=== PATIENT | female | born 1975 | race Caucasian/White ===

== ENCOUNTER 2021-06-23 07:37 | Emergency (ER) | payer SELFPAY ==
[~2021-06-23] VITALS: Ht 165.1 cm; Wt 160.1 kg
--- NOTE | 2021-06-23 08:31 | RAD ---
XR CHEST 1V History: Reason: shortness of breath / Spl. Instructions: / History: Comparison: None. Findings: Mild ill-defined bibasilar opacities. No pleural effusion. No pneumothorax. Normal heart size. Impression: 1. Mild ill-defined bibasilar opacities, may represent atelectasis or developing infiltrates. If per sistent clinical concern, recommend follow-up. Electronically signed by: Golden Hussein DO (06/23/2021 8:29 AM) [id number]
--- NOTE | 2021-06-23 08:40 | PHYS DOC ---
Past Medical History Past Medical History: COPD, Diabetes-Type II, High Cholesterol Past Surgical History: Appendectomy, Cholecystectomy, Tonsillectomy Smoking Status: Current Every Day Smoker Alcohol Use: None General Adult EDM: Chief Complaint: SHORTNESS OF BREATH HPI: HPI: Patient is a 45 year old female with history of COPD, DM, tobacco abuse who presents with 4 days of progressive shortness of breath. She is recently moved from [place] and states that she does not have a PCP in the area. She has been out of her albuterol inhaler. Denies being on an inhaled steroid previously. Does state that she was hospitalized for presumed bacterial pneumonia in March back in [facility]. She has had increasing productive cough. Brown sputum most frequent in the morning. She has had increasing shortness of breath that is both exertional and has a component of orthopnea. She complains of lower extremity swelling, right greater than left. Denies having previous echocardiogram. Does state that she has been worked up for pulmonary embolism as recently as March with a negative CT scan after high D-dimer. At that time she did not have unilateral leg swelling. She was hospitalized for a few days. Denies any recent surgeries. Denies hemoptysis. No cancer history. No estrogen-containing medications. No history of DVT/PE. She is not anticoagulated. Denies chest pain, but does complain of chest tightness. Reports chills. No measured temperatures. Review of Systems: Review of Systems: Constitutional: Reports chills. Eyes: Denies change in visual acuity. [] HENT: Denies nasal congestion or sore throat. [] Respiratory: Reports cough and shortness of breath. Reports chest tightness. Cardiovascular: Denies chest pain. Reports lower extremity edema R>L. GI: Denies abdominal pain, nausea, vomiting, bloody stools or diarrhea. [] : Denies dysuria. [] Musculoskeletal: Denies back pain or joint pain. [] Integument: Denies rash. [] Neurologic: Denies headache, focal weakness or sensory changes. [] Psychiatric: Denies depression or anxiety. [] Heart Score: C/O Chest Pain: No Allergies: Allergies: Allergies Coded Allergies Type Severity Reaction Last Updated Verified No Known Drug Allergies 06/23/21 No Physical Exam: PE: Constitutional: Obese, increased work of breathing. 4-5 word dyspnea is improving with rest. HENT: Normocephalic, atraumatic, Eyes: PERRLA, EOMI, conjunctiva normal, no discharge. [] Neck: Normal range of motion, no tenderness, supple, no stridor. [] Cardiovascular:Heart rate regular rhythm, no murmur [] Lungs & Thorax: Frequent wet sounding and productive cough. Notably no wheezes, or rales. Increased work of breathing with tachypnea in the mid 20s to 30 Abdomen: Bowel sounds normal, soft, no tenderness, no masses, no pulsatile masses. [] Skin: Warm, dry, no erythema, no rash. [] Extremities: Right lower extremity appears slightly larger than the left. Pitting edema obviously evident on the right, mild pitting edema on the left. 2+ DP pulses bilaterally. Neurologic: Alert and oriented X 3, normal motor function, normal sensory function, no focal deficits noted. [] Psychologic: Affect normal, judgement normal, mood normal. [] Current Patient Data: Vital Signs: Vital Signs Date Time Temp Pulse Resp B/P (MAP) Pulse Ox O2 Delivery O2 Flow Rate FiO2 06/23/21 08:09 98.5 99 22 166/85 (112) 97 Room Air 98.5 EKG: EKG: [] Radiology/Procedures: Radiology/Procedures: [] Impression: [facility] [address] [place], [place] [id number] IMAGING REPORT Signed PATIENT: JOLLY GOMEZ ACCOUNT: [id number] : 1975 LOCATION: ER AGE: 45 SEX: F EXAM STATUS: REG ER ORD. PHYSICIAN: TATY MATIAS MD REASON: shortness of breath PROCEDURE: CHEST AP ONLY XR CHEST 1V History: Reason: shortness of breath / Spl. Instructions: / History: Comparison: None. Findings: Mild ill-defined bibasilar opacities. No pleural effusion. No pneumothorax. Normal heart size. Impression: 1. Mild ill-defined bibasilar opacities, may represent atelectasis or developing infiltrates. If persistent clinical concern, recommend follow-up. Electronically signed by: Golden Hussein DO (06/23/2021 8:29 AM) [id number] DICTATED and SIGNED BY: GOLDEN HUSSEIN DO DATE: 06/23/[id number] 0 [facility] [address] [place] [address] IMAGING REPORT Signed PATIENT: JOLLY GOMEZ ACCOUNT: [id number] : 1975 LOCATION: ER AGE: 45 SEX: F EXAM STATUS: REG ER ORD. PHYSICIAN: TATY MATIAS MD REASON: r/o dvt, swelling; SOB; Cough x 5 days PROCEDURE: VENOUS LOWER EXTREMITY RIGHT STUDY: US DPLX VENOUS EXTREMITY LOWER RT INDICATION: Reason: r/o dvt, swelling; SOB; Cough x 5 days TECHNIQUE: Color-flow and pulsed wave duplex ultrasound with compression of venous structures of the right lower extremity. COMPARISON: None Available. FINDINGS: Duplex ultrasound with compression of the deep venous structures of the right lower extremity from the common femoral vein through the popliteal vein is negative for DVT. The posterior tibial and peroneal veins are segmentally visualized and patent where seen. Normal venous waveforms and augmentation are noted throughout. IMPRESSION: No deep venous thrombosis of the right lower extremity. Electronically signed by: Dani Maciel MD (06/23/2021 8:59 AM) [id number] DICTATED and SIGNED BY: DANI MACIEL MD DATE: 06/23/21 [id number] Course & Med Decision Making: Course & Med Decision Making Pertinent Labs and Imaging studies reviewed. (See chart for details) Patient 45-year-old female with history of COPD, recent hospitalization for pneumonia (March) who presents with progressive orthopnea, exertional dyspnea, productive cough, and lower extremity edema R >L. On arrival is afebrile, HR 99, mild HTN, and increased work of breathing. Notably no wheezing to suggest COPD exacerbation. With swelling considered new onset heart failure, DVT/PE. With productive cough and reported chills considered pneumonia, covid, influenza. Exertional chest tightness present so considered ACS as well, single troponin should be sufficient to r/o given timing of several days. 0840 Dimer negative. DVT US negative. No further work up for VTE. EKG non-ischemic and trop negative. No evidence of pulmonary edema on CXR and BNP is normal making new onset heart failure less likely. Rapid flu/covid neg. CXR does show evidence of early pneumonia and given her hx will treat with doxycycline and augmentin. Refill albuterol and steroid burst. Given contact info to establish with PCP in area. Return precautions discussed. Shana Disclaimer: Shana Disclaimer: This electronic medical record was generated, in whole or in part, using a voice recognition dictation system. Departure Departure Impression: Primary Impression: Pneumonia Disposition: HOME / SELF CARE / HOMELESS Condition: STABLE Referrals: NO PCP (PCP) Patient Instructions: Pneumonia, Adult Additional Instructions: Since you do not have a PCP, please call the number for the [facility] at [phone]. You have evidence of pneumonia on your chest x-ray you will need to take 2 antibiotics called Augmentin and doxycycline. Please take full as prescribed. Please take a 5-day course of steroids and use albuterol every 4 hours as needed. Please purchase a spacer to use with your albuterol inhaler. If you develop worsening shortness of breath, high fever/shaking chills, new/concerning symptoms please return to the emergency department for reevaluation. Scripts Prednisone (PREDNISONE) 50 Mg Tablet 1 TAB PO DAILY, #5 TAB 0 Refills Prov: TATY MATIAS MD 06/23/21 Amoxicillin/Potassium Clav (AUGMENTIN 875-125 TABLET) 1 Each Tablet 1 TAB PO BID for 7 Days, #14 TAB 0 Refills Prov: TATY MATIAS MD 06/23/21 Doxycycline Hyclate (DOXYCYCLINE HYCLATE) 100 Mg Capsule 1 CAP PO BID for 7 Days, #14 CAP 0 Refills Prov: TATY MATIAS MD 06/23/21 Albuterol Sulfate (Proair Hfa) 8.5 Gm Hfa.aer.ad 2 PUFF IH PRN Q4-6HRS PRN for wheezing for 21 Days, #1 INHALER 0 Refills Prov: TATY MATIAS MD 06/23/21 TATY MATIAS MD Jun 23, 2021 08:40
[2021-06-23 08:45] LABS: BASO % 0 % (0-3); EOS # 0.3 x10^3/uL (0.0-0.7); EOS % 3 % (0-3); HEMATOCRIT 37.3 % (36.0-47.0); HEMOGLOBIN 11.9 g/dL (12.0-15.5); LYMPH # 2.6 x10^3/uL (1.0-4.8); LYMPH % 23 % (24-48); MEAN CORPUSCULAR HEMOGLOBIN 22 pg (25-35); MEAN CORPUSCULAR HGB CONC 32 g/dL (31-37); MEAN CORPUSCULAR VOLUME 70 fL (79-100); MONO # 0.8 x10^3/uL (0.0-1.1); MONO % 7 % (0-9); NEUT # 7.3 x10^3/uL (1.8-7.7); NEUT % 67 % (31-73); PLATELET COUNT 289 x10^3/uL (140-400); RED BLOOD COUNT 5.33 x10^6/uL (3.50-5.40); RED CELL DISTRIBUTION WIDTH 18.9 % (11.5-14.5)
[2021-06-23 08:50] LABS: CALCIUM 8.6 mg/dL (8.5-10.1); CREATININE 0.6 mg/dL (0.6-1.0); GFR 109.1; POTASSIUM 4.1 mmol/L (3.5-5.1)
[2021-06-23 08:56] LABS: ALBUMIN 3.1 g/dL (3.4-5.0); ALBUMIN/GLOBULIN RATIO 0.8 (1.0-1.7); TOTAL BILIRUBIN 0.4 mg/dL (0.2-1.0)
[2021-06-23 08:58] LABS: INFLUENZA A PATIENT NEGATIVE (NEGATIVE); INFLUENZA B PATIENT NEGATIVE (NEGATIVE)
--- NOTE | 2021-06-23 09:01 | RAD ---
STUDY: US DPLX VENOUS EXTREMITY LOWER RT INDICATION: Reason: r/o dvt, swelling; SOB; Cough x 5 days TECHNIQUE: Color-flow and pulsed wave duplex ultrasound with compression of venous structures of the right lower extremity. COMPARISON: None Available. FINDINGS: Duplex ultrasound with compression of the deep venous structures of the right lower extremity from th e common femoral vein through the popliteal vein is negative for DVT. The posterior tibial and peroneal veins are segmentally visualized and patent where seen. Normal veno us waveforms and augmentation are noted throughout. IMPRESSION: No deep venous thrombosis of the right lower extremity. Electronically signed by: Dani Grayson MD (06/23/2021 8:59 AM) [id number]
[2021-06-23 09:02] VITALS: BP 125/58
[2021-06-23] MEDS ORDERED: DOXY100C3 PO (09:55)
[2021-06-23] MEDS ORDERED: AMOX1TAB61 PO (09:55)
[2021-06-23] MEDS ORDERED: ALBU2.5V8 IH (09:55)
[2021-06-23] MEDS ORDERED: PRED50TA PO (09:55)
[2021-06-23 10:11] LABS: HYPOCHROMIA PRESENT; MICROCYTOSIS PRESENT; PLT ESTIMATE ADEQUATE (ADEQUATE)
--- NOTE | 2021-06-24 03:38 | EKG ---
[facility] [address] [place] [address] Test Date: 2021-06-23 Test Time: 09:31:37 Pat Name: JOLLY GOMEZ Department: Room: Gender: F Rn Hemodialysis Charge: : 1975 Requested By: TATY MATIAS Order Number: [id number] Reading MD: Measurements Intervals [place] Rate: 81 P: 37 TX: 162 QRS: 84 QRSD: 82 T: 31 QT: 372 QTc: 433 Interpretive Statements SINUS RHYTHM NORMAL ECG RI6.01 No previous ECG available for comparison
--- NOTE | 2021-06-24 09:21 | NUR ---
Attempted to reach patient with test results, voicemail was left to return phone call. Addendum: 06/24/21 at 0935 by Marylin Gutierrez RN Patient returned call, was informed of negative test results.
== END 2021-06-23 10:11 | disposition home or self-care (01) ==
LOC: ER 07:37
DX: J18.9 Pneumonia, unspecified organism (principal); Z20.822 Contact with and (suspected) exposure to COVID-19; J44.9 Chronic obstructive pulmonary disease, unspecified; E11.9 Type 2 diabetes mellitus without complications; E78.00 Pure hypercholesterolemia, unspecified; Z72.0 Tobacco use
CPT/HCPCS: 36415; 71045; 80053; 83880; 84484; 85025; 85379; 87426; 87804; 93005; 93971; 99285; U0003; U0005

== ENCOUNTER 2021-10-03 07:36 | Inpatient (IN) | payer SELFPAY ==
[~2021-10-03] VITALS: Ht 165.1 cm; Wt 154.4 kg
[~2021-10-03 07:36] MED LIST: ALBU2.5V8 IH; AMOX1TAB61 PO; DOXY100C3 PO; PRED50TA PO
[2021-10-03] MEDS ORDERED: IV NORMAL SALINE 1000ML BAG 1,000 ML IV SCH (08:15)
[2021-10-03] MEDS ORDERED: diphenhydrAMINE 50 MG/ML VIAL IVP ONE (08:30)
[2021-10-03] MEDS ORDERED: KETOROLAC 15 MG/ML VIAL. IVP ONE (08:30)
[2021-10-03 08:43] LABS: BASO % 0 % (0-3); EOS # 0.1 x10^3/uL (0.0-0.7); EOS % 2 % (0-3); HEMATOCRIT 40.8 % (36.0-47.0); HEMOGLOBIN 12.5 g/dL (12.0-15.5); LYMPH # 1.4 x10^3/uL (1.0-4.8); LYMPH % 20 % (24-48); MEAN CORPUSCULAR HEMOGLOBIN 20 pg (25-35); MEAN CORPUSCULAR HGB CONC 31 g/dL (31-37); MEAN CORPUSCULAR VOLUME 64 fL (79-100); MONO # 0.9 x10^3/uL (0.0-1.1); MONO % 13 % (0-9); NEUT # 4.4 x10^3/uL (1.8-7.7); NEUT % 65 % (31-73); PLATELET COUNT 336 x10^3/uL (140-400); RED BLOOD COUNT 6.37 x10^6/uL (3.50-5.40); RED CELL DISTRIBUTION WIDTH 17.9 % (11.5-14.5); WHITE BLOOD COUNT 6.8 x10^3/uL (4.0-11.0)
[2021-10-03 08:44] LABS: RBC,URINE 0 /HPF (0-2)
[2021-10-03 08:45] LABS: AMORPHOUS SEDIMENT,UR PRESENT /HPF; BACTERIA,URINE FEW /HPF (0-FEW); HYALINE CASTS, URINE FEW /HPF
[2021-10-03] MEDS ORDERED: CONTRAST GIVEN. MC PRN (08:45)
[2021-10-03] MEDS ORDERED: IOHEXOL 300 MG/ML 100ML VIAL. IV ONE (08:45)
[2021-10-03 08:50] LABS: CALCIUM 8.5 mg/dL (8.5-10.1); CREATININE 0.7 mg/dL (0.6-1.0); GFR 91.3; POTASSIUM 3.6 mmol/L (3.5-5.1)
[2021-10-03 08:55] LABS: ALBUMIN 3.8 g/dL (3.4-5.0); TOTAL BILIRUBIN 0.6 mg/dL (0.2-1.0); TOTAL PROTEIN 7.5 g/dL (6.4-8.2)
--- NOTE | 2021-10-03 09:05 | PHYS DOC ---
Past Medical History Past Medical History: COPD, Diabetes-Type II, High Cholesterol Additional Past Medical Histor: morbid obesity Past Surgical History: Cholecystectomy, Tonsillectomy, Other Additional Past Surgical Histo: lithotripsy, trigger thumb Smoking Status: Current Every Day Smoker Additional Information: 1 ppd Alcohol Use: Rarely General Adult EDM: Chief Complaint: DIARRHEA HPI: HPI: Patient is a 45 year old female presents with abdominal cramping sharp right upper quadrant pain and diarrhea for the last 4 days. Patient also states that she has broke out in hives on her volar aspect of her left hand as well as her left ear. Patient states that she has only been able to eat peanut butter crackers as she lacks an appetite and reports extreme nausea. Patient denies any vomiting. States that she had her gallbladder removed in the past. Denies fevers or chills no sick contacts no new food exposures. Patient states that she has been treating herself with Imodium but the symptoms have not improved and came to the ER today to be evaluated Review of Systems: Review of Systems: Constitutional: Denies fever or chills. Eyes: Denies change in visual acuity. HENT: Denies nasal congestion or sore throat. Respiratory: Denies cough or shortness of breath. Cardiovascular: Denies chest pain or edema. GI: Patient reports abdominal cramping worse in the right upper quadrant. Diarrhea nausea no vomiting : Denies dysuria. Musculoskeletal: Denies back pain or joint pain. Integument: Denies rash. Neurologic: Denies headache, focal weakness or sensory changes. Endocrine: Denies polyuria or polydipsia. Lymphatic: Denies swollen glands. Psychiatric: Denies depression or anxiety. Heart Score: C/O Chest Pain: No Risk Factors: Risk Factors: DM, Current or recent (<one month) smoker, HTN, HLP, family history of CAD, obesity. Risk Scores: Score 0 - 3: 2.5% MACE over next 6 weeks - Discharge Home Score 4 - 6: 20.3% MACE over next 6 weeks - Admit for Clinical Observation Score 7 - 10: 72.7% MACE over next 6 weeks - Early Invasive Strategies Current Medications: Current Medications Medications (Trade) Dose Ordered Sig/Cande Start Time Stop Time Status Last Admin Dose Admin Diphenhydramine HCl (Benadryl) 25 mg 1X ONCE 10/03/21 08:30 10/03/21 08:31 DC 10/03/21 08:43 25 MG Info (CONTRAST GIVEN -- Rx MONITORING) 1 each PRN DAILY PRN 10/03/21 08:45 10/05/21 08:44 Iohexol (Omnipaque 300 Mg/ml) 75 ml 1X ONCE 10/03/21 08:45 10/03/21 08:46 DC Ketorolac Tromethamine (Toradol 15mg Vial) 15 mg 1X ONCE 10/03/21 08:30 10/03/21 08:31 DC 10/03/21 08:41 15 MG Sodium Chloride 1,000 ml @ 1,000 mls/hr Q1H 10/03/21 08:15 10/03/21 09:14 10/03/21 08:30 1,000 MLS/HR Allergies: Allergies: Allergies Coded Allergies Type Severity Reaction Last Updated Verified No Known Drug Allergies 10/03/21 No Physical Exam: PE: Constitutional: Well developed, well nourished, no acute distress, non-toxic appearance. [] HENT: Normocephalic, atraumatic, bilateral external ears normal, oropharynx moist, no oral exudates, nose normal. [] Eyes: PERRLA, EOMI, conjunctiva normal, no discharge. [] Neck: Normal range of motion, no tenderness, supple, no stridor. [] Cardiovascular:Heart rate regular rhythm, no murmur [] Lungs & Thorax: Bilateral breath sounds clear to auscultation [] Abdomen: Bowel sounds normal, soft, no tenderness, no masses, no pulsatile masses. [] Skin: Warm, dry, no erythema, no rash. [] Back: No tenderness, no CVA tenderness. [] Extremities: No tenderness, no cyanosis, no clubbing, ROM intact, no edema. [] Neurologic: Alert and oriented X 3, normal motor function, normal sensory function, no focal deficits noted. [] Psychologic: Affect normal, judgement normal, mood normal. [] Current Patient Data: Labs: Laboratory Tests Test 10/03/21 07:57 10/03/21 07:59 10/03/21 08:25 Urine Collection Type Unknown Urine Color (Auto) Yellow Urine Turbidity Hazy Urine pH (Auto) 6.0 (<5.0-8.0) Urine Specific [place] 1.030 (1.000-1.030) Urine Protein (Auto) 70 mg/dL (Negative) Urine Glucose (Auto)(UA) 100 mg/dL (Negative) Urine Ketones (Auto) Negative mg/dL (Negative) Urine Blood (Auto) Moderate (Negative) Urine Nitrite (Auto) Negative (Negative) Urine Bilirubin (Auto) Negative (Negative) Urine Urobilinogen (Auto) Normal mg/dL (Normal) Urine Leukocyte Esterase (Auto) Negative (Negative) Urine RBC 0 /HPF (0-2) Urine WBC 5-10 /HPF (0-4) Urine Squamous Epithelial Cells Mod /LPF Urine Amorphous Sediment Present /HPF Urine Bacteria Few /HPF (0-FEW) Urine Hyaline Casts Few /HPF Urine Mucus Mod /LPF POC Urine HCG, Qualitative Hcg negative (Negative) White Blood Count 6.8 x10^3/uL (4.0-11.0) Red Blood Count 6.37 x10^6/uL (3.50-5.40) H Hemoglobin 12.5 g/dL (12.0-15.5) Hematocrit 40.8 % (36.0-47.0) Mean Corpuscular Volume 64 fL (79-100) L Mean Corpuscular Hemoglobin 20 pg (25-35) L Mean Corpuscular Hemoglobin Concent 31 g/dL (31-37) Red Cell Distribution Width 17.9 % (11.5-14.5) H Platelet Count 336 x10^3/uL (140-400) Neutrophils (%) (Auto) 65 % (31-73) Lymphocytes (%) (Auto) 20 % (24-48) L Monocytes (%) (Auto) 13 % (0-9) H Eosinophils (%) (Auto) 2 % (0-3) Basophils (%) (Auto) 0 % (0-3) Neutrophils # (Auto) 4.4 x10^3/uL (1.8-7.7) Lymphocytes # (Auto) 1.4 x10^3/uL (1.0-4.8) Monocytes # (Auto) 0.9 x10^3/uL (0.0-1.1) Eosinophils # (Auto) 0.1 x10^3/uL (0.0-0.7) Basophils # (Auto) 0.0 x10^3/uL (0.0-0.2) Platelet Estimate Pending Sodium Level 135 mmol/L (136-145) L Potassium Level 3.6 mmol/L (3.5-5.1) Chloride Level 100 mmol/L (98-107) Carbon Dioxide Level 25 mmol/L (21-32) Anion Gap 10 (6-14) Blood Urea Nitrogen 12 mg/dL (7-20) Creatinine 0.7 mg/dL (0.6-1.0) Estimated GFR (Cockcroft-Gault) 91.3 BUN/Creatinine Ratio 17 (6-20) Glucose Level 222 mg/dL (70-99) H Calcium Level 8.5 mg/dL (8.5-10.1) Total Bilirubin 0.6 mg/dL (0.2-1.0) Aspartate Amino Transferase (AST) 34 U/L (15-37) Alanine Aminotransferase (ALT) 54 U/L (14-59) Alkaline Phosphatase 81 U/L (46-116) Total Protein 7.5 g/dL (6.4-8.2) Albumin 3.8 g/dL (3.4-5.0) Albumin/Globulin Ratio 1.0 (1.0-1.7) Lipase 105 U/L (73-393) Laboratory Tests 10/03/21 08:25 Laboratory Tests 10/03/21 08:25 Vital Signs: Vital Signs Date Time Temp Pulse Resp B/P (MAP) Pulse Ox O2 Delivery O2 Flow Rate FiO2 10/03/21 08:44 88 20 169/83 (111) 96 Room Air 10/03/21 07:50 98.7 98.7 EKG: EKG: [] Radiology/Procedures: Radiology/Procedures: Procedure: Contiguous axial images of the abdomen and pelvis were performed after the administration of 75 cc of Omni 300 IV contrast. Oral contrast: No. Findings: Cholecystectomy. The appendix is normal. Liver: Unremarkable Spleen: Unremarkable Pancreas: Unremarkable Adrenal Glands: Unremarkable Kidneys: There is a 4.1 cm hypoattenuating mass medially in the left kidney There is no mass or lymphadenopathy. There is no free air. There is no free fluid. The urinary bladder is collapsed and not well evaluated. Impression: Left kidney lesion appears to be a solid mass. Consider follow-up ultrasound or MRI with and without contrast. Course & Med Decision Making: Course & Med Decision Making Pertinent Labs and Imaging studies reviewed. (See chart for details) Patient is a 4.1 cm perinephric mass. Patient has nondescript abdominal pain diarrhea and hives. Discussed concerns with the hospitalist will bring in for paraneoplastic syndrome Shana Disclaimer: Shana Disclaimer: This electronic medical record was generated, in whole or in part, using a voice recognition dictation system. Departure Departure Referrals: NO PCP (PCP) HOMA IBRAHIM DO Oct 03, 2021 09:05
--- NOTE | 2021-10-03 09:38 | RAD ---
CT OF THE ABDOMEN AND PELVIS WITH IV CONTRAST. History: Abdominal pain Comparison:None. Procedure: Contiguous axial images of the abdomen and pelvis were performed after the administration of 75 cc o f Omni 300 IV contrast. Oral contrast: No. Findings: Cholecystectomy. The appendix is normal. Liver: Unremarkable Spleen: Unremarkable Pancreas: Unremarkable Adrenal Glands: Unremarkable Kidneys: There is a 4.1 cm hypoattenuating mass medially in the left kidney There is no mass or lymphadenopathy. There is no free air. There is no free fluid. The urinary bladder is collapsed and not well evaluated. Impression: Left kidney lesion appears to be a solid mass. Consider follow-up ultrasound or MRI with and without contrast. End Impression PQRS Compliance Statement: One or more of the following individualized dose reduction techniques were utilized for this examinat ion: 1. Automated exposure control 2. Adjustment of the mA and/or kV according to patient size 3. Use of iterative reconstruction technique Electronically signed by: Zion Logan III, MD (10/03/2021 9:36 AM) [facility]
[2021-10-03 11:45] LABS: ANISOCYTOSIS SLIGHT; MICROCYTOSIS MARKED; PLT ESTIMATE ADEQUATE (ADEQUATE)
[2021-10-03 11:46] LABS: HYPOCHROMIA MARKED
[2021-10-03 12:30] VITALS: BP 130/80
[2021-10-03] MEDS ORDERED: METF100010 PO (12:57)
[2021-10-03] MEDS ORDERED: METF10007 PO (12:57)
[2021-10-03] MEDS ORDERED: CALCIUM CARBONATE 500 MG TAB.CHEW PO PRN (13:00)
[2021-10-03] MEDS ORDERED: ONDANSETRON PF 4 MG/2 ML VIAL. IVP PRN (13:00)
[2021-10-03] MEDS ORDERED: ELECTROLYTE (NON-ICU) PROTOCOL. MC PRN (13:00)
[2021-10-03] MEDS ORDERED: MORPHINE SULFATE 2 MG/ML INJ. IV PRN ×2 (13:00)
[2021-10-03] MEDS ORDERED: ZOLPIDEM 5 MG TABLET. PO PRN (13:00)
[2021-10-03 15:00] VITALS: BP 144/76
[2021-10-03] MEDS: DIPHENHYDRAMINE/ZINC ACETATE 2%/0.1% TOPICAL CREAM 28GM TUBE. TP PRN (15:14)
[2021-10-03] MEDS: HEPARIN for SUB-Q USE 5,000 UNIT/ML VIAL. SQ SCH ×2 (15:25→22:27)
--- NOTE | 2021-10-03 15:54 | RAD ---
EXAM: RENAL ULTRASOUND CLINICAL HISTORY: Mass evaluation. COMPARISON: Same day CT abdomen/pelvis TECHNIQUE: Ultrasound examination of the bilateral kidneys and urinary bladder was performed. FINDINGS: The right kidney measures 12.6 x 5.4 x 5.6 cm. The left kidney was not able to be evaluated and very poor visualization of the urinary bladder on account of patient body habitus. No appreciable cyst or mass of the right kidney. No hydronephrosis on the right. Prevoid bladder volu me of 110 cc measuring 5.3 x 6.6 x 5.9 cm. IMPRESSION: 1. Significantly limited study on account of patient body habitus. The left kidney and the associated potential mass described on the same day CT were not able to be evaluated. Eventual CT or MRI renal mass protocol would be needed to further evaluate. 2. Morphologically unremarkable right kidney without hydronephrosis. Limited assessment of the urinar y bladder without obvious localized wall thickening. Prevoid bladder volume of approximately 110 cc. Electronically signed by: WARNER ROMERO MD (10/03/2021 3:52 PM) [id number]
[2021-10-03] MEDS ORDERED: OMEP20CA16 PO (16:22)
--- NOTE | 2021-10-03 18:31 | PDOC ---
PROGRESS NOTE DATE OF SERVICE: DATE: 10/03/21 TIME: 18:25 CHIEF COMPLAINT: abd pain/diarrhea/nausea SUBJECTIVE: ROS: ROS: RESPIRATORY: Shortness of breath denies. Cough denies. UROLOGY: Denies blood in urine. Denies difficulty urinating HPI: 45 year old female presented to the ER today with abd pain, nausea, and diarrhea x2 days. Significant finding on CT for 4.1cm right renal mass. Patient states she had a scan done "years ago" that showed this mass and was 3cm. States she wasn't told at that time about it. Unable to tell me when or where this was done. Denies any urinary symptoms. Problems: Problems Medical Problems: (1) Paraneoplastic neurologic disorder Status: Acute OBJECTIVE: Vital Signs: Vital Signs Date Time Temp Pulse Resp B/P (MAP) Pulse Ox O2 Delivery O2 Flow Rate FiO2 10/03/21 15:00 98.1 86 16 144/76 (98) 93 Room Air 98.1 10/03/21 13:00 Room Air 10/03/21 12:39 80 20 155/88 (110) 96 Room Air 10/03/21 12:30 97.8 85 16 130/80 (97) 96 Room Air 97.8 10/03/21 09:56 75 20 126/57 (80) 99 Room Air 10/03/21 08:44 88 20 169/83 (111) 96 Room Air 10/03/21 08:31 90 20 118/63 (81) 97 Room Air 10/03/21 07:50 98.7 93 24 177/75 (109) 99 Room Air 98.7 PHYSICAL EXAM: Physical Exam: General: Pleasant, no acute distress, well groomed Eyes: conjunctiva anicteric, eyes full range of motion ENT: moist oral mucosa, normal dentition Neck: Trachea midline, no masses Respiratory: unlabored breathing, not using accessory muscles, no crackles or wheezes Abdomen: abd pain, nondistended, no hepatosplenomegaly, no masses Skin: no rashes or skin lesions on visualized skin Psych: normal mood, affect. Alert and oriented x 3. LABS: Laboratory Tests Test 10/03/21 07:57 10/03/21 07:59 10/03/21 08:25 10/03/21 17:08 Urine Collection Type Unknown Urine Color (Auto) Yellow Urine Turbidity Hazy Urine pH (Auto) 6.0 (<5.0-8.0) Urine Specific [place] 1.030 (1.000-1.030) Urine Protein (Auto) 70 mg/dL (Negative) Urine Glucose (Auto)(UA) 100 mg/dL (Negative) Urine Ketones (Auto) Negative mg/dL (Negative) Urine Blood (Auto) Moderate (Negative) Urine Nitrite (Auto) Negative (Negative) Urine Bilirubin (Auto) Negative (Negative) Urine Urobilinogen (Auto) Normal mg/dL (Normal) Urine Leukocyte Esterase (Auto) Negative (Negative) Urine RBC 0 /HPF (0-2) Urine WBC 5-10 /HPF (0-4) Urine Squamous Epithelial Cells Mod /LPF Urine Amorphous Sediment Present /HPF Urine Bacteria Few /HPF (0-FEW) Urine Hyaline Casts Few /HPF Urine Mucus Mod /LPF Bedside Urine HCG, Qualitative Hcg negative (Negative) White Blood Count 6.8 x10^3/uL (4.0-11.0) Red Blood Count 6.37 x10^6/uL (3.50-5.40) Hemoglobin 12.5 g/dL (12.0-15.5) Hematocrit 40.8 % (36.0-47.0) Mean Corpuscular Volume 64 fL (79-100) Mean Corpuscular Hemoglobin 20 pg (25-35) Mean Corpuscular Hemoglobin Concent 31 g/dL (31-37) Red Cell Distribution Width 17.9 % (11.5-14.5) Platelet Count 336 x10^3/uL (140-400) Neutrophils (%) (Auto) 65 % (31-73) Lymphocytes (%) (Auto) 20 % (24-48) Monocytes (%) (Auto) 13 % (0-9) Eosinophils (%) (Auto) 2 % (0-3) Basophils (%) (Auto) 0 % (0-3) Neutrophils # (Auto) 4.4 x10^3/uL (1.8-7.7) Lymphocytes # (Auto) 1.4 x10^3/uL (1.0-4.8) Monocytes # (Auto) 0.9 x10^3/uL (0.0-1.1) Eosinophils # (Auto) 0.1 x10^3/uL (0.0-0.7) Basophils # (Auto) 0.0 x10^3/uL (0.0-0.2) Platelet Estimate Adequate (ADEQUATE) Large Platelets Few Hypochromasia Marked Anisocytosis Slight Microcytosis Marked Sodium Level 135 mmol/L (136-145) Potassium Level 3.6 mmol/L (3.5-5.1) Chloride Level 100 mmol/L (98-107) Carbon Dioxide Level 25 mmol/L (21-32) Anion Gap 10 (6-14) Blood Urea Nitrogen 12 mg/dL (7-20) Creatinine 0.7 mg/dL (0.6-1.0) Estimated GFR (Cockcroft-Gault) 91.3 BUN/Creatinine Ratio 17 (6-20) Glucose Level 222 mg/dL (70-99) Calcium Level 8.5 mg/dL (8.5-10.1) Total Bilirubin 0.6 mg/dL (0.2-1.0) Aspartate Amino Transf (AST/SGOT) 34 U/L (15-37) Alanine Aminotransferase (ALT/SGPT) 54 U/L (14-59) Alkaline Phosphatase 81 U/L (46-116) Total Protein 7.5 g/dL (6.4-8.2) Albumin 3.8 g/dL (3.4-5.0) Albumin/Globulin Ratio 1.0 (1.0-1.7) Lipase 105 U/L (73-393) Glucose (Fingerstick) 213 mg/dL (70-99) MEDICATIONS: Current Medications Medications (Trade) Dose Ordered Sig/Cande Start Time Stop Time Status Last Admin Dose Admin Calcium Carbonate/ Glycine (Tums) 500 mg PRN Q3HRS PRN 10/03/21 13:00 Diphenhydramine HCl (Benadryl) 25 mg PRN Q6HRS PRN 10/03/21 14:15 Heparin Sodium (Porcine) (Heparin Sodium) 5,000 unit Q8HRS 10/03/21 14:00 10/03/21 15:25 5,000 UNIT Info (CONTRAST GIVEN -- Rx MONITORING) 1 each PRN DAILY PRN 10/03/21 08:45 10/05/21 08:44 Info (Non-Icu Electrolyte Protocol) 1 ea PRN DAILY PRN 10/03/21 13:00 Iohexol (Omnipaque 300 Mg/ml) 75 ml 1X ONCE 10/03/21 08:45 10/03/21 08:46 DC 10/03/21 09:10 75 ML Ketorolac Tromethamine (Toradol 15mg Vial) 15 mg 1X ONCE 10/03/21 08:30 10/03/21 08:31 DC 10/03/21 08:41 15 MG Morphine Sulfate (Morphine Sulfate) 2 mg PRN Q1HR PRN 10/03/21 13:00 Ondansetron HCl (Zofran) 4 mg PRN Q6HRS PRN 10/03/21 13:00 Sodium Chloride 1,000 ml @ 1,000 mls/hr Q1H 10/03/21 08:15 10/03/21 09:14 DC 10/03/21 08:30 1,000 MLS/HR Zinc Acetate/ Diphenhydramine (Benadryl Topical) 1 parisa PRN QID PRN 10/03/21 14:15 10/03/21 15:14 1 PARISA Zolpidem Tartrate (Ambien) 5 mg PRN QHS PRN 10/03/21 13:00 ASSESSMENT & PLAN ---Renal mass Incidental. Unlikely to be causing her symptoms. 4.1cm right renal mass noted on CT Will consult IR for biopsy. Discussed with patient possible need for nephrectomy. Patient concerned about insurance status. NPO at midnight for IR. Case d/w Dr. Steve Urology will follow Problem List: Problems Medical Problems: (1) Paraneoplastic neurologic disorder Status: Acute ENRIQUETA ARCHIBALD [employer] Oct 03, 2021 18:31
[2021-10-03 19:00] VITALS: BP 143/72
--- NOTE | 2021-10-03 19:29 | PDOC1 ---
History and Physical Date of Service: DOS: DATE: 10/03/21 TIME: 19:22 Chief Complaint: Chief Complain: diarrhea History of Present Illness: HPI: 45-year-old female presented to the emergency room with 5 days of persistent diarrhea. Says she is having nearly 10 episodes a day. Denies any sort of blood in the stool but was recently on her period so she was uncertain exactly. Has never had an episode like this before. Has tried Imodium and Pepto-Bismol at home without any relief. Decreased p.o. intake and has only been eating crackers with peanut butter secondary to nausea as well.. Denies any pain or vomiting with this. No recent exposure to antibiotics. In emergency room imaging found incidentally kidney mass. Concern in the emergency room for paraneoplastic syndrome given mass found. Will admit and further assess. Past Medical/Surgical History: PMH/PSH: Past Medical History: COPD, Diabetes-Type II, High Cholesterol Additional Past Medical Histor: morbid obesity Past Surgical History: Cholecystectomy, Tonsillectomy Additional Past Surgical Histo: lithotripsy, trigger thumb Smoking Status: Current Every Day Smoker Additional Information: 1 ppd Alcohol Use: Rarely denies drug use Allergies: Allergies: Coded Allergies: No Known Drug Allergies (Unverified , 10/03/21) Family History: Family History: DM2 Current Medications: Current Medications Current Medications Sodium Chloride 1,000 ml @ 1,000 mls/hr Q1H IV Last administered on 10/03/21at 08:30; Start 10/03/21 at 08:15; Stop 10/03/21 at 09:14; Status DC Ketorolac Tromethamine (Toradol 15mg Vial) 15 mg 1X ONCE IVP Last administered on 10/03/21at 08:41; Start 10/03/21 at 08:30; Stop 10/03/21 at 08:31; Status DC Diphenhydramine HCl (Benadryl) 25 mg 1X ONCE IVP Last administered on 10/03/21at 08:43; Start 10/03/21 at 08:30; Stop 10/03/21 at 08:31; Status DC Iohexol (Omnipaque 300 Mg/ml) 75 ml 1X ONCE IV Last administered on 10/03/21at 09:10; Start 10/03/21 at 08:45; Stop 10/03/21 at 08:46; Status DC Info (CONTRAST GIVEN -- Rx MONITORING) 1 each PRN DAILY PRN MC SEE COMMENTS; Start 10/03/21 at 08:45; Stop 10/05/21 at 08:44 Ondansetron HCl (Zofran) 4 mg PRN Q6HRS PRN IVP NAUSEA/VOMITING; Start 10/03/21 at 13:00 Calcium Carbonate/ Glycine (Tums) 500 mg PRN Q3HRS PRN PO UPSET STOMACH; Start 10/03/21 at 13:00 Zolpidem Tartrate (Ambien) 5 mg PRN QHS PRN PO INSOMNIA, MAY REPEAT IN 1HR; Start 10/03/21 at 13:00 Info (Non-Icu Electrolyte Protocol) 1 ea PRN DAILY PRN MC SEE COMMENTS; Start 10/03/21 at 13:00 Morphine Sulfate (Morphine Sulfate) 1 mg PRN Q1HR PRN IV MODERATE PAIN; Start 10/03/21 at 13:00 Morphine Sulfate (Morphine Sulfate) 2 mg PRN Q1HR PRN IV SEVERE PAIN; Start 10/03/21 at 13:00 Heparin Sodium (Porcine) (Heparin Sodium) 5,000 unit Q8HRS SQ Last administered on 10/03/21at 15:25; Start 10/03/21 at 14:00 Diphenhydramine HCl (Benadryl) 25 mg PRN Q6HRS PRN PO ITCHING; Start 10/03/21 at 14:15 Zinc Acetate/ Diphenhydramine (Benadryl Topical) 1 parisa PRN QID PRN TP itching Last administered on 10/03/21at 15:14; Start 10/03/21 at 14:15 Active Scripts Active Proair Hfa (Albuterol Sulfate) 8.5 Gm Hfa.aer.ad 2 Puff IH PRN Q4-6HRS PRN 21 Days Reported Omeprazole 20 Mg Capsule.dr 1 Cap PO DAILY Metformin Hcl 1,000 Mg Tablet 1,000 Mg PO BID Metformin Hcl Er (Metformin Hcl) 1,000 Mg Tab.er.24 1,000 Mg PO DAILYWBKFT ROS: Review of Systems Review of System unLess noted in HPI 14 point review systems negative Physical Exam: Vital Signs: Vital Signs Date Time Temp Pulse Resp B/P (MAP) Pulse Ox O2 Delivery O2 Flow Rate FiO2 10/03/21 15:00 98.1 86 16 144/76 (98) 93 Room Air 98.1 Physcial Exam: GEN: Mild distress obese HEENT: Normal cephalic, atraumatic, external auditory canals are patent EYES: Extraocular muscles are intact, pupil are equally round and reactive to light and accommodation MUSCULOSKELETAL: Well developed , well nourished, good range of motion ENDOCRINE: No thyromegaly was palpated LYMPHATICS: No cervical chain or axillary nodes were noted HEMATOPOIETIC: No bruising NECK: Supple, no JVD, no thyromegaly was noted LUNGS: Clear to auscultation in all lung siddiqi without rhonchi or wheezing HEART: RRR, S1, S2 present. Peripheral pulses intact, no obvious murmurs noted ABDOMEN: Soft, nontender. Positive bowel sounds, no organomegaly, normal bowel sounds distended EXTREMITIES: Lateral lower extremity edema. N NEUROLOGIC: Normal speech and tone. A&O x 3, moves all extremities, no obvi ous focal deficits PSYCHIATRIC: Normal affect, normal mood. Stable SKIN: No ulcerations or rashes, good skin turgor, no jaundice VASCULAR: Good capillary refill, neurovascular bundle appears to be intact Labs: Labs: Laboratory Tests Test 10/03/21 07:57 10/03/21 07:59 10/03/21 08:25 10/03/21 17:08 Urine Collection Type Unknown Urine Color (Auto) Yellow Urine Turbidity Hazy Urine pH (Auto) 6.0 (<5.0-8.0) Urine Specific [place] 1.030 (1.000-1.030) Urine Protein (Auto) 70 mg/dL (Negative) Urine Glucose (Auto)(UA) 100 mg/dL (Negative) Urine Ketones (Auto) Negative mg/dL (Negative) Urine Blood (Auto) Moderate (Negative) Urine Nitrite (Auto) Negative (Negative) Urine Bilirubin (Auto) Negative (Negative) Urine Urobilinogen (Auto) Normal mg/dL (Normal) Urine Leukocyte Esterase (Auto) Negative (Negative) Urine RBC 0 /HPF (0-2) Urine WBC 5-10 /HPF (0-4) Urine Squamous Epithelial Cells Mod /LPF Urine Amorphous Sediment Present /HPF Urine Bacteria Few /HPF (0-FEW) Urine Hyaline Casts Few /HPF Urine Mucus Mod /LPF Bedside Urine HCG, Qualitative Hcg negative (Negative) White Blood Count 6.8 x10^3/uL (4.0-11.0) Red Blood Count 6.37 x10^6/uL (3.50-5.40) Hemoglobin 12.5 g/dL (12.0-15.5) Hematocrit 40.8 % (36.0-47.0) Mean Corpuscular Volume 64 fL (79-100) Mean Corpuscular Hemoglobin 20 pg (25-35) Mean Corpuscular Hemoglobin Concent 31 g/dL (31-37) Red Cell Distribution Width 17.9 % (11.5-14.5) Platelet Count 336 x10^3/uL (140-400) Neutrophils (%) (Auto) 65 % (31-73) Lymphocytes (%) (Auto) 20 % (24-48) Monocytes (%) (Auto) 13 % (0-9) Eosinophils (%) (Auto) 2 % (0-3) Basophils (%) (Auto) 0 % (0-3) Neutrophils # (Auto) 4.4 x10^3/uL (1.8-7.7) Lymphocytes # (Auto) 1.4 x10^3/uL (1.0-4.8) Monocytes # (Auto) 0.9 x10^3/uL (0.0-1.1) Eosinophils # (Auto) 0.1 x10^3/uL (0.0-0.7) Basophils # (Auto) 0.0 x10^3/uL (0.0-0.2) Platelet Estimate Adequate (ADEQUATE) Large Platelets Few Hypochromasia Marked Anisocytosis Slight Microcytosis Marked Sodium Level 135 mmol/L (136-145) Potassium Level 3.6 mmol/L (3.5-5.1) Chloride Level 100 mmol/L (98-107) Carbon Dioxide Level 25 mmol/L (21-32) Anion Gap 10 (6-14) Blood Urea Nitrogen 12 mg/dL (7-20) Creatinine 0.7 mg/dL (0.6-1.0) Estimated GFR (Cockcroft-Gault) 91.3 BUN/Creatinine Ratio 17 (6-20) Glucose Level 222 mg/dL (70-99) Calcium Level 8.5 mg/dL (8.5-10.1) Total Bilirubin 0.6 mg/dL (0.2-1.0) Aspartate Amino Transf (AST/SGOT) 34 U/L (15-37) Alanine Aminotransferase (ALT/SGPT) 54 U/L (14-59) Alkaline Phosphatase 81 U/L (46-116) Total Protein 7.5 g/dL (6.4-8.2) Albumin 3.8 g/dL (3.4-5.0) Albumin/Globulin Ratio 1.0 (1.0-1.7) Lipase 105 U/L (73-393) Glucose (Fingerstick) 213 mg/dL (70-99) Laboratory Tests Test 10/03/21 07:57 10/03/21 07:59 10/03/21 08:25 10/03/21 17:08 Urine Collection Type Unknown Urine Color (Auto) Yellow Urine Turbidity Hazy Urine pH (Auto) 6.0 (<5.0-8.0) Urine Specific [place] 1.030 (1.000-1.030) Urine Protein (Auto) 70 mg/dL (Negative) Urine Glucose (Auto)(UA) 100 mg/dL (Negative) Urine Ketones (Auto) Negative mg/dL (Negative) Urine Blood (Auto) Moderate (Negative) Urine Nitrite (Auto) Negative (Negative) Urine Bilirubin (Auto) Negative (Negative) Urine Urobilinogen (Auto) Normal mg/dL (Normal) Urine Leukocyte Esterase (Auto) Negative (Negative) Urine RBC 0 /HPF (0-2) Urine WBC 5-10 /HPF (0-4) Urine Squamous Epithelial Cells Mod /LPF Urine Amorphous Sediment Present /HPF Urine Bacteria Few /HPF (0-FEW) Urine Hyaline Casts Few /HPF Urine Mucus Mod /LPF Bedside Urine HCG, Qualitative Hcg negative (Negative) White Blood Count 6.8 x10^3/uL (4.0-11.0) Red Blood Count 6.37 x10^6/uL (3.50-5.40) Hemoglobin 12.5 g/dL (12.0-15.5) Hematocrit 40.8 % (36.0-47.0) Mean Corpuscular Volume 64 fL (79-100) Mean Corpuscular Hemoglobin 20 pg (25-35) Mean Corpuscular Hemoglobin Concent 31 g/dL (31-37) Red Cell Distribution Width 17.9 % (11.5-14.5) Platelet Count 336 x10^3/uL (140-400) Neutrophils (%) (Auto) 65 % (31-73) Lymphocytes (%) (Auto) 20 % (24-48) Monocytes (%) (Auto) 13 % (0-9) Eosinophils (%) (Auto) 2 % (0-3) Basophils (%) (Auto) 0 % (0-3) Neutrophils # (Auto) 4.4 x10^3/uL (1.8-7.7) Lymphocytes # (Auto) 1.4 x10^3/uL (1.0-4.8) Monocytes # (Auto) 0.9 x10^3/uL (0.0-1.1) Eosinophils # (Auto) 0.1 x10^3/uL (0.0-0.7) Basophils # (Auto) 0.0 x10^3/uL (0.0-0.2) Platelet Estimate Adequate (ADEQUATE) Large Platelets Few Hypochromasia Marked Anisocytosis Slight Microcytosis Marked Sodium Level 135 mmol/L (136-145) Potassium Level 3.6 mmol/L (3.5-5.1) Chloride Level 100 mmol/L (98-107) Carbon Dioxide Level 25 mmol/L (21-32) Anion Gap 10 (6-14) Blood Urea Nitrogen 12 mg/dL (7-20) Creatinine 0.7 mg/dL (0.6-1.0) Estimated GFR (Cockcroft-Gault) 91.3 BUN/Creatinine Ratio 17 (6-20) Glucose Level 222 mg/dL (70-99) Calcium Level 8.5 mg/dL (8.5-10.1) Total Bilirubin 0.6 mg/dL (0.2-1.0) Aspartate Amino Transf (AST/SGOT) 34 U/L (15-37) Alanine Aminotransferase (ALT/SGPT) 54 U/L (14-59) Alkaline Phosphatase 81 U/L (46-116) Total Protein 7.5 g/dL (6.4-8.2) Albumin 3.8 g/dL (3.4-5.0) Albumin/Globulin Ratio 1.0 (1.0-1.7) Lipase 105 U/L (73-393) Glucose (Fingerstick) 213 mg/dL (70-99) Assessment/Plan Assessment/Plan Nonbloody persistent diarrhea. Incidentally found kidney mass. History COPD type 2 diabetes hypertension hyperlipidemia -Several days of ongoing diarrhea. Multiple episodes a day. Not having any p ain with it. Decreased p.o. intake secondary to nausea -Mass found on kidney on imaging. ER team concern for paraneoplastic syndrome. Outside of diarrhea patient asymptomatic no neurologic symptoms -Will work-up for infectious causes -If no improvement can consider GI consult tomorrow -With the mass urology consulted. Planning for IR biopsy -N.p.o. midnight -Monitor sugars. Home meds resumed as indicated -DVT prophylaxis 23 minutes advance care planning. Justifications for Admission Other Justification ISAEL DIETRICH MD Oct 03, 2021 19:29
[2021-10-03] MEDS: diphenhydrAMINE HCL 25 MG CAPSULE PO PRN (20:45)
[2021-10-03 23:00] VITALS: BP 153/70
[2021-10-04] VITALS (17 sets, daily range): BP systolic 117–170; BP diastolic 55–95
[2021-10-04] MEDS: HEPARIN for SUB-Q USE 5,000 UNIT/ML VIAL. SQ SCH ×3 (05:01→21:18)
[2021-10-04 07:34] LABS: BASO % 0 % (0-3); EOS # 0.2 x10^3/uL (0.0-0.7); EOS % 3 % (0-3); HEMATOCRIT 38.2 % (36.0-47.0); HEMOGLOBIN 11.8 g/dL (12.0-15.5); LYMPH # 1.5 x10^3/uL (1.0-4.8); LYMPH % 31 % (24-48); MEAN CORPUSCULAR HEMOGLOBIN 20 pg (25-35); MEAN CORPUSCULAR HGB CONC 31 g/dL (31-37); MEAN CORPUSCULAR VOLUME 65 fL (79-100); MONO # 0.6 x10^3/uL (0.0-1.1); MONO % 13 % (0-9); NEUT # 2.6 x10^3/uL (1.8-7.7); NEUT % 53 % (31-73); PLATELET COUNT 298 x10^3/uL (140-400); RED BLOOD COUNT 5.91 x10^6/uL (3.50-5.40); RED CELL DISTRIBUTION WIDTH 17.5 % (11.5-14.5)
[2021-10-04 07:35] LABS: ALBUMIN 3.4 g/dL (3.4-5.0); ALBUMIN/GLOBULIN RATIO 0.9 (1.0-1.7); CALCIUM 8.4 mg/dL (8.5-10.1); CREATININE 0.6 mg/dL (0.6-1.0); GFR 109.1; POTASSIUM 3.1 mmol/L (3.5-5.1); TOTAL BILIRUBIN 0.4 mg/dL (0.2-1.0)
[2021-10-04] MEDS: DIPHENHYDRAMINE/ZINC ACETATE 2%/0.1% TOPICAL CREAM 28GM TUBE. TP PRN (07:51)
[2021-10-04] MEDS ORDERED: LIDOCAINE WITH 8.4% SOD BICARB 3 ML DISP.SYRIN. ONE (08:39)
[2021-10-04] MEDS ORDERED: GELATIN SPONGE SIZE 12-7MM SPONGE. ONE (08:39)
[2021-10-04] MEDS ORDERED: MIDAZOLAM HCL/PF 2 MG/2 ML VIAL. ONE (08:39)
[2021-10-04] MEDS ORDERED: fentaNYL PF VIAL 100 MCG/2 ML VIAL ONE (08:39)
[2021-10-04 09:10] LABS: PROTHROMBIN TIME PATIENT 12.7 SEC (11.7-14.0)
[2021-10-04] MEDS ORDERED: GELATIN SPONGE SIZE 12-7MM SPONGE. TP ONE (11:15)
[2021-10-04] MEDS ORDERED: fentaNYL PF VIAL 100 MCG/2 ML VIAL IV ONE (11:15)
[2021-10-04] MEDS ORDERED: LIDOCAINE WITH 8.4% SOD BICARB 3 ML DISP.SYRIN. IJ ONE (11:15)
[2021-10-04] MEDS ORDERED: MIDAZOLAM HCL/PF 2 MG/2 ML VIAL. IV ONE (11:15)
--- NOTE | 2021-10-04 11:25 | NUR ---
Heparin held for IR procedure.
--- NOTE | 2021-10-04 12:03 | PDOC ---
PROGRESS NOTE DATE OF SERVICE: DATE: 10/04/21 TIME: 11:58 CHIEF COMPLAINT: left renal mass Patient has got back from interventional radiology procedure. She reports that the mass was a fluid collection and cystic structure. Sent down for cytology. Her pain is controlled. No urinary complaints SUBJECTIVE: Problems: Problems Medical Problems: (1) Paraneoplastic neurologic disorder Status: Acute OBJECTIVE: Vital Signs: Vital Signs Date Time Temp Pulse Resp B/P (MAP) Pulse Ox O2 Delivery O2 Flow Rate FiO2 10/04/21 11:37 75 22 93 Nasal Cannula 10/04/21 11:34 19 95 Nasal Cannula 2.0 10/04/21 11:31 74 18 95 Nasal Cannula 2.0 10/04/21 11:26 73 22 95 Nasal Cannula 2.0 10/04/21 11:21 74 18 95 Nasal Cannula 2.0 10/04/21 11:16 72 26 95 Nasal Cannula 2.0 10/04/21 08:00 Room Air 10/04/21 07:00 98.1 64 18 117/59 (78) 96 Room Air 98.1 10/04/21 03:00 98.1 69 16 126/58 (80) 93 Room Air 98.1 10/03/21 23:00 98.7 75 16 153/70 (97) 93 Room Air 98.7 10/03/21 20:00 Room Air 10/03/21 19:00 98.4 74 16 143/72 (95) 94 Room Air 98.4 10/03/21 15:00 98.1 86 16 144/76 (98) 93 Room Air 98.1 10/03/21 13:00 Room Air 10/03/21 12:39 80 20 155/88 (110) 96 Room Air 10/03/21 12:30 97.8 85 16 130/80 (97) 96 Room Air 97.8 I & O Intake and Output 10/04/21 07:00 Intake Total 1000 ml Balance 1000 ml Intake IV Total 1000 ml # Voids 4 PHYSICAL EXAM: Physical Exam: General: Pleasant, no acute distress, well groomed Eyes: conjunctiva anicteric, eyes full range of motion ENT: moist oral mucosa, normal dentition Neck: Trachea midline, no masses Respiratory: unlabored breathing, not using accessory muscles, no crackles or wheezes Abdomen: nontender, nondistended, no hepatosplenomegaly, no masses Skin: no rashes or skin lesions on visualized skin, left flank dressed with dressing, no active bleeding Psych: normal mood, affect. Alert and oriented x 3. LABS: Laboratory Tests Test 10/03/21 07:57 10/03/21 07:59 10/03/21 08:25 10/03/21 17:08 Urine Collection Type Unknown Urine Color (Auto) Yellow Urine Turbidity Hazy Urine pH (Auto) 6.0 (<5.0-8.0) Urine Specific [place] 1.030 (1.000-1.030) Urine Protein (Auto) 70 mg/dL (Negative) Urine Glucose (Auto)(UA) 100 mg/dL (Negative) Urine Ketones (Auto) Negative mg/dL (Negative) Urine Blood (Auto) Moderate (Negative) Urine Nitrite (Auto) Negative (Negative) Urine Bilirubin (Auto) Negative (Negative) Urine Urobilinogen (Auto) Normal mg/dL (Normal) Urine Leukocyte Esterase (Auto) Negative (Negative) Urine RBC 0 /HPF (0-2) Urine WBC 5-10 /HPF (0-4) Urine Squamous Epithelial Cells Mod /LPF Urine Amorphous Sediment Present /HPF Urine Bacteria Few /HPF (0-FEW) Urine Hyaline Casts Few /HPF Urine Mucus Mod /LPF Bedside Urine HCG, Qualitative Hcg negative (Negative) White Blood Count 6.8 x10^3/uL (4.0-11.0) Red Blood Count 6.37 x10^6/uL (3.50-5.40) Hemoglobin 12.5 g/dL (12.0-15.5) Hematocrit 40.8 % (36.0-47.0) Mean Corpuscular Volume 64 fL (79-100) Mean Corpuscular Hemoglobin 20 pg (25-35) Mean Corpuscular Hemoglobin Concent 31 g/dL (31-37) Red Cell Distribution Width 17.9 % (11.5-14.5) Platelet Count 336 x10^3/uL (140-400) Neutrophils (%) (Auto) 65 % (31-73) Lymphocytes (%) (Auto) 20 % (24-48) Monocytes (%) (Auto) 13 % (0-9) Eosinophils (%) (Auto) 2 % (0-3) Basophils (%) (Auto) 0 % (0-3) Neutrophils # (Auto) 4.4 x10^3/uL (1.8-7.7) Lymphocytes # (Auto) 1.4 x10^3/uL (1.0-4.8) Monocytes # (Auto) 0.9 x10^3/uL (0.0-1.1) Eosinophils # (Auto) 0.1 x10^3/uL (0.0-0.7) Basophils # (Auto) 0.0 x10^3/uL (0.0-0.2) Platelet Estimate Adequate (ADEQUATE) Large Platelets Few Hypochromasia Marked Anisocytosis Slight Microcytosis Marked Sodium Level 135 mmol/L (136-145) Potassium Level 3.6 mmol/L (3.5-5.1) Chloride Level 100 mmol/L (98-107) Carbon Dioxide Level 25 mmol/L (21-32) Anion Gap 10 (6-14) Blood Urea Nitrogen 12 mg/dL (7-20) Creatinine 0.7 mg/dL (0.6-1.0) Estimated GFR (Cockcroft-Gault) 91.3 BUN/Creatinine Ratio 17 (6-20) Glucose Level 222 mg/dL (70-99) Calcium Level 8.5 mg/dL (8.5-10.1) Total Bilirubin 0.6 mg/dL (0.2-1.0) Aspartate Amino Transf (AST/SGOT) 34 U/L (15-37) Alanine Aminotransferase (ALT/SGPT) 54 U/L (14-59) Alkaline Phosphatase 81 U/L (46-116) Total Protein 7.5 g/dL (6.4-8.2) Albumin 3.8 g/dL (3.4-5.0) Albumin/Globulin Ratio 1.0 (1.0-1.7) Lipase 105 U/L (73-393) Glucose (Fingerstick) 213 mg/dL (70-99) Test 10/03/21 20:50 10/04/21 06:55 10/04/21 07:29 10/04/21 08:45 Glucose (Fingerstick) 229 mg/dL (70-99) 180 mg/dL (70-99) White Blood Count 5.0 x10^3/uL (4.0-11.0) Red Blood Count 5.91 x10^6/uL (3.50-5.40) Hemoglobin 11.8 g/dL (12.0-15.5) Hematocrit 38.2 % (36.0-47.0) Mean Corpuscular Volume 65 fL (79-100) Mean Corpuscular Hemoglobin 20 pg (25-35) Mean Corpuscular Hemoglobin Concent 31 g/dL (31-37) Red Cell Distribution Width 17.5 % (11.5-14.5) Platelet Count 298 x10^3/uL (140-400) Neutrophils (%) (Auto) 53 % (31-73) Lymphocytes (%) (Auto) 31 % (24-48) Monocytes (%) (Auto) 13 % (0-9) Eosinophils (%) (Auto) 3 % (0-3) Basophils (%) (Auto) 0 % (0-3) Neutrophils # (Auto) 2.6 x10^3/uL (1.8-7.7) Lymphocytes # (Auto) 1.5 x10^3/uL (1.0-4.8) Monocytes # (Auto) 0.6 x10^3/uL (0.0-1.1) Eosinophils # (Auto) 0.2 x10^3/uL (0.0-0.7) Basophils # (Auto) 0.0 x10^3/uL (0.0-0.2) Sodium Level 136 mmol/L (136-145) Potassium Level 3.1 mmol/L (3.5-5.1) Chloride Level 103 mmol/L (98-107) Carbon Dioxide Level 24 mmol/L (21-32) Anion Gap 9 (6-14) Blood Urea Nitrogen 9 mg/dL (7-20) Creatinine 0.6 mg/dL (0.6-1.0) Estimated GFR (Cockcroft-Gault) 109.1 BUN/Creatinine Ratio 15 (6-20) Glucose Level 183 mg/dL (70-99) Calcium Level 8.4 mg/dL (8.5-10.1) Total Bilirubin 0.4 mg/dL (0.2-1.0) Aspartate Amino Transf (AST/SGOT) 27 U/L (15-37) Alanine Aminotransferase (ALT/SGPT) 46 U/L (14-59) Alkaline Phosphatase 78 U/L (46-116) Total Protein 7.0 g/dL (6.4-8.2) Albumin 3.4 g/dL (3.4-5.0) Albumin/Globulin Ratio 0.9 (1.0-1.7) Prothrombin Time 12.7 SEC (11.7-14.0) Prothromb Time International Ratio 1.0 (0.8-1.1) MEDICATIONS: Current Medications Medications (Trade) Dose Ordered Sig/Cande Start Time Stop Time Status Last Admin Dose Admin Calcium Carbonate/ Glycine (Tums) 500 mg PRN Q3HRS PRN 10/03/21 13:00 Diphenhydramine HCl (Benadryl) 25 mg PRN Q6HRS PRN 10/03/21 14:15 10/03/21 20:45 25 MG Fentanyl Citrate (Fentanyl 2ml Vial) 100 mcg 1X ONCE 10/04/21 11:15 10/04/21 11:16 DC 10/04/21 11:34 100 MCG Gelatin (Gelfoam Size 12-7mm) 1 each 1X ONCE 10/04/21 11:15 10/04/21 11:16 DC 10/04/21 11:15 1 EACH Heparin Sodium (Porcine) (Heparin Sodium) 5,000 unit Q8HRS 10/03/21 14:00 10/03/21 22:27 5,000 UNIT Info (CONTRAST GIVEN -- Rx MONITORING) 1 each PRN DAILY PRN 10/03/21 08:45 10/05/21 08:44 Info (Non-Icu Electrolyte Protocol) 1 ea PRN DAILY PRN 10/03/21 13:00 Iohexol (Omnipaque 300 Mg/ml) 75 ml 1X ONCE 10/03/21 08:45 10/03/21 08:46 DC 10/03/21 09:10 75 ML Ketorolac Tromethamine (Toradol 15mg Vial) 15 mg 1X ONCE 10/03/21 08:30 10/03/21 08:31 DC 10/03/21 08:41 15 MG Lidocaine HCl (Buffered Lidocaine 1%) 3 ml 1X ONCE 10/04/21 11:15 10/04/21 11:16 DC 10/04/21 11:35 11 ML Midazolam HCl (Versed) 2 mg 1X ONCE 10/04/21 11:15 10/04/21 11:16 DC 10/04/21 11:35 2 MG Morphine Sulfate (Morphine Sulfate) 2 mg PRN Q1HR PRN 10/03/21 13:00 Ondansetron HCl (Zofran) 4 mg PRN Q6HRS PRN 10/03/21 13:00 Sodium Chloride 1,000 ml @ 1,000 mls/hr Q1H 10/03/21 08:15 10/03/21 09:14 DC 10/03/21 08:30 1,000 MLS/HR Zinc Acetate/ Diphenhydramine (Benadryl Topical) 1 parisa PRN QID PRN 10/03/21 14:15 10/04/21 07:51 1 PARISA Zolpidem Tartrate (Ambien) 5 mg PRN QHS PRN 10/03/21 13:00 ASSESSMENT & PLAN --Left-sided renal mass Patient had interventional radiology biopsy of renal mass. Patient reports that fluid was collected and appeared to be cystic fluid. Cytology has been sent. We will have patient follow-up in the clinic in 2 to 3 weeks to discuss cytology results as well as follow-up imaging in the next 3 to 6 months. No further urology management at this time. Please call with questions. Problem List: Problems Medical Problems: (1) Paraneoplastic neurologic disorder Status: Acute DIAMOND CHAPA Oct 04, 2021 12:03
--- NOTE | 2021-10-04 12:26 | PDOC ---
[employer] PROGRESS NOTE Date of Service DOS: DATE: 10/04/21 TIME: 12:24 Chief Complaint Chief Complaint Diarrhea C. difficile Kidney mass COPD, Diabetes-Type II, High Cholesterol Additional Past Medical Histor: morbid obesity Past Surgical History: Cholecystectomy, Tonsillectomy Additional Past Surgical Histo: lithotripsy, trigger thumb Smoking Status: Current Every Day Smoker History of Present Illness History of Present Illness 10/04/2021 Patient seen and examined Discussed with RN Chart reviewed She is going for a left renal biopsy today Vitals/I&O Vitals/I&O: Vital Signs Date Time Temp Pulse Resp B/P (MAP) Pulse Ox O2 Delivery O2 Flow Rate FiO2 10/04/21 11:37 75 22 93 Nasal Cannula 10/04/21 11:34 2.0 10/04/21 07:00 98.1 117/59 (78) 98.1 I & O 10/03/21 10/03/21 10/04/21 15:00 23:00 07:00 Intake Total 1000 ml Balance 1000 ml Labs Labs: Laboratory Tests Test 10/03/21 17:08 10/03/21 20:50 10/04/21 06:55 10/04/21 07:29 Glucose (Fingerstick) 213 mg/dL (70-99) 229 mg/dL (70-99) 180 mg/dL (70-99) White Blood Count 5.0 x10^3/uL (4.0-11.0) Red Blood Count 5.91 x10^6/uL (3.50-5.40) Hemoglobin 11.8 g/dL (12.0-15.5) Hematocrit 38.2 % (36.0-47.0) Mean Corpuscular Volume 65 fL (79-100) Mean Corpuscular Hemoglobin 20 pg (25-35) Mean Corpuscular Hemoglobin Concent 31 g/dL (31-37) Red Cell Distribution Width 17.5 % (11.5-14.5) Platelet Count 298 x10^3/uL (140-400) Neutrophils (%) (Auto) 53 % (31-73) Lymphocytes (%) (Auto) 31 % (24-48) Monocytes (%) (Auto) 13 % (0-9) Eosinophils (%) (Auto) 3 % (0-3) Basophils (%) (Auto) 0 % (0-3) Neutrophils # (Auto) 2.6 x10^3/uL (1.8-7.7) Lymphocytes # (Auto) 1.5 x10^3/uL (1.0-4.8) Monocytes # (Auto) 0.6 x10^3/uL (0.0-1.1) Eosinophils # (Auto) 0.2 x10^3/uL (0.0-0.7) Basophils # (Auto) 0.0 x10^3/uL (0.0-0.2) Sodium Level 136 mmol/L (136-145) Potassium Level 3.1 mmol/L (3.5-5.1) Chloride Level 103 mmol/L (98-107) Carbon Dioxide Level 24 mmol/L (21-32) Anion Gap 9 (6-14) Blood Urea Nitrogen 9 mg/dL (7-20) Creatinine 0.6 mg/dL (0.6-1.0) Estimated GFR (Cockcroft-Gault) 109.1 BUN/Creatinine Ratio 15 (6-20) Glucose Level 183 mg/dL (70-99) Calcium Level 8.4 mg/dL (8.5-10.1) Total Bilirubin 0.4 mg/dL (0.2-1.0) Aspartate Amino Transf (AST/SGOT) 27 U/L (15-37) Alanine Aminotransferase (ALT/SGPT) 46 U/L (14-59) Alkaline Phosphatase 78 U/L (46-116) Total Protein 7.0 g/dL (6.4-8.2) Albumin 3.4 g/dL (3.4-5.0) Albumin/Globulin Ratio 0.9 (1.0-1.7) Test 10/04/21 08:45 10/04/21 11:56 Prothrombin Time 12.7 SEC (11.7-14.0) Prothromb Time International Ratio 1.0 (0.8-1.1) Glucose (Fingerstick) 183 mg/dL (70-99) Assessment and Plan Assessmemt and Plan Problems Medical Problems: (1) Paraneoplastic neurologic disorder Status: Acute Diarrhea C. difficile Kidney mass COPD, Diabetes-Type II, High Cholesterol Additional Past Medical Histor: morbid obesity Past Surgical History: Cholecystectomy, Tonsillectomy Additional Past Surgical Histo: lithotripsy, trigger thumb Smoking Status: Current Every Day Smoker Plan She is going for left renal mass biopsy today Continue current other halfway meds DVT prophylaxis Full code As needed Bentyl Continue Comment Review of Relevant I have reviewed the following items luis antonio (where applicable) has been applied. Medications: Current Medications Medications (Trade) Dose Ordered Sig/Cande Route PRN Reason Start Time Stop Time Status Last Admin Dose Admin Heparin Sodium (Porcine) (Heparin Sodium) 5,000 unit Q8HRS SQ 10/03/21 14:00 10/03/21 22:27 Diphenhydramine HCl (Benadryl) 25 mg PRN Q6HRS PRN PO ITCHING 10/03/21 14:15 10/03/21 20:45 Zinc Acetate/ Diphenhydramine (Benadryl Topical) 1 parisa PRN QID PRN TP itching 10/03/21 14:15 10/04/21 07:51 Lidocaine HCl (Buffered Lidocaine 1%) 3 ml 1X ONCE IJ 10/04/21 11:15 10/04/21 11:16 DC 10/04/21 11:35 Midazolam HCl (Versed) 2 mg 1X ONCE IV 10/04/21 11:15 10/04/21 11:16 DC 10/04/21 11:35 Fentanyl Citrate (Fentanyl 2ml Vial) 100 mcg 1X ONCE IV 10/04/21 11:15 10/04/21 11:16 DC 10/04/21 11:34 Gelatin (Gelfoam Size 12-7mm) 1 each 1X ONCE TP 10/04/21 11:15 10/04/21 11:16 DC 10/04/21 11:15 Justifications for Admission Other Justification MIRA VU III DO Oct 04, 2021 12:26
--- NOTE | 2021-10-04 13:02 | RAD ---
PROCEDURE: CT guided aspiration-left kidney mass. (CPT 36306, 32605) Moderate sedation (CPT fill) One or more of the following radiation dose reduction techniques was used: automated exposure control , adjustment of mA and/or KV according to patient size, and/or utilization of iterative reconstructio n technique. INDICATION: Left kidney high density lesion seen on CT scan with inconclusive ultrasound concerning f or from solid mass. Biopsy is requested. SEDATION: Under physician supervision, Versed and fentanyl were administered intravenously for moder ate sedation. Pulse oximetry, heart rate, and BP were continuously monitored by a dedicated qualifie d nurse. The physician spent 15 minutes of [id number] sedation time with the patient. Current history and physical and other medical records are reviewed prior to the procedure. CONSENT: Informed consent was obtained. The risks, benefits, potential complications and alternatives were reviewed and all questions answered. PROCEDURE: After maximal sterile barrier technique preparation and draping, 1% lidocaine was utilized for local anesthesia. With the patient in prone position, and via posterior approach, a 17-gauge guide needle is introduced into the left kidney mass under CT scan guidance. After confirming adequate positioning with saved C T images, aspiration is performed and 20 cc of yellow serous fluid is obtained. This is sent for cyto logy evaluation. The patient tolerated the procedure well with no immediate complications. FINDINGS: The left adrenal mass is a cyst. No definite solid component seen.. IMPRESSION: Successful CT guided aspiration of left renal cyst. Electronically signed by: Bill Cisneros MD (10/04/2021 1:00 PM) [id number]
--- NOTE | 2021-10-04 13:02 | RAD ---
PROCEDURE: CT guided aspiration-left kidney mass. (CPT 18989, 91907) Moderate sedation (CPT fill) One or more of the following radiation dose reduction techniques was used: automated exposure control , adjustment of mA and/or KV according to patient size, and/or utilization of iterative reconstructio n technique. INDICATION: Left kidney high density lesion seen on CT scan with inconclusive ultrasound concerning f or from solid mass. Biopsy is requested. SEDATION: Under physician supervision, Versed and fentanyl were administered intravenously for moder ate sedation. Pulse oximetry, heart rate, and BP were continuously monitored by a dedicated qualifie d nurse. The physician spent 15 minutes of [id number] sedation time with the patient. Current history and physical and other medical records are reviewed prior to the procedure. CONSENT: Informed consent was obtained. The risks, benefits, potential complications and alternatives were reviewed and all questions answered. PROCEDURE: After maximal sterile barrier technique preparation and draping, 1% lidocaine was utilized for local anesthesia. With the patient in prone position, and via posterior approach, a 17-gauge guide needle is introduced into the left kidney mass under CT scan guidance. After confirming adequate positioning with saved C T images, aspiration is performed and 20 cc of yellow serous fluid is obtained. This is sent for cyto logy evaluation. The patient tolerated the procedure well with no immediate complications. FINDINGS: The left adrenal mass is a cyst. No definite solid component seen.. IMPRESSION: Successful CT guided aspiration of left renal cyst. Electronically signed by: Bill Cisneros MD (10/04/2021 1:00 PM) [id number]
[2021-10-04] MEDS ORDERED: EMPA25TA3 PO (17:02)
[2021-10-04] MEDS: NYSTATIN TOPICAL POWDER 15GM BOTTLE. TP SCH (21:19)
[2021-10-05 03:00] VITALS: BP 131/74
[2021-10-05] MEDS: HEPARIN for SUB-Q USE 5,000 UNIT/ML VIAL. SQ SCH (05:53)
[2021-10-05 07:15] VITALS: BP 131/74
[2021-10-05] MEDS: diphenhydrAMINE HCL 25 MG CAPSULE PO PRN (08:42)
[2021-10-05] MEDS: NYSTATIN TOPICAL POWDER 15GM BOTTLE. TP SCH (08:43)
[2021-10-05 11:12] VITALS: BP 133/72
--- NOTE | 2021-10-05 12:51 | NUR ---
Pt discharged home with self care. Discharge instructions discussed. Pt verbalized understanding. IV removed. Pt ambulated to entrance and was secured in car with boyfriend.
--- NOTE | 2021-10-05 17:16 | DS ---
DATE OF DISCHARGE: 10/05/2021 ADMITTING DIAGNOSES: Diarrhea and left renal mass. DISCHARGE DIAGNOSES: 1. Resolving diarrhea, suspect gastroenteritis. 2. Status post left renal cyst drainage. 3. Chronic obstructive pulmonary disease. 4. Diabetes. 5. Hypertension. 6. Hyperlipidemia. HOSPITAL COURSE: The patient is a pleasant, middle-aged female who was admitted with diarrhea, was noted to have mass on her kidney. She was admitted. We gave her IV fluids. We checked her for C. diff, it was negative. Her symptoms resolved. She went for a drainage of her renal cyst yesterday. Today, I saw and examined the patient, she is doing well and wants to go home. We will plan to discharge. DISPOSITION: Home. ACTIVITY: As tolerated. DIET: Low sodium. DISCHARGE MEDICATIONS: Please see the MRAD. Albuterol p.r.n., Jardiance 12.5 daily, metformin 1000 b.i.d. and omeprazole 20 a day TOTAL TIME: 34 minutes. SUSAN/JANE DR: Meenakshi TID: [id number]
== END 2021-10-05 12:56 | disposition home or self-care (01) | DRG 392 ==
LOC: ER 07:36 → 4 NORTH 12:05 → ED HOLD 12:06 → 4 NORTH 13:00
PROVIDERS: ADMIT Student in an Organized Health Care Education/Training Program; ATTEND Student in an Organized Health Care Education/Training Program
PROC: 0T913ZX Drainage of Left Kidney, Percutaneous Approach, Diagnostic (ICD-10-PCS; principal; 2021-10-04)
DX: K52.9 Noninfective gastroenteritis and colitis, unspecified (principal); Z68.43 Body mass index [BMI] 50.0-59.9, adult; E11.9 Type 2 diabetes mellitus without complications; E66.01 Morbid (severe) obesity due to excess calories; E78.00 Pure hypercholesterolemia, unspecified; E78.5 Hyperlipidemia, unspecified; I10 Essential (primary) hypertension; J44.9 Chronic obstructive pulmonary disease, unspecified; N28.1 Cyst of kidney, acquired; N28.89 Other specified disorders of kidney and ureter; Z83.3 Family history of diabetes mellitus; Z87.891 Personal history of nicotine dependence; Z90.49 Acquired absence of other specified parts of digestive tract
CPT/HCPCS: 36415; 50200; 74177; 76770; 77012; 80053; 81001; 81025; 82962; 83690; 85025; 85610; 87493; 96361; 96374; 96375; 99152; 99153; J1200; J1644; J1885; J2250; J3010; J3490; J7030; Q9967; 99285-25; G0378; Q0163